=== PATIENT | female | born 1965 | race African-American/Black ===

== ENCOUNTER 2023-02-15 13:27 | Outpatient (CLI) | payer OTHER | END 2023-02-15 13:28 | disposition home or self-care (01) | LOC: CSHMAMMO 13:27 | PROVIDERS: ATTEND Family Medicine | DX: Z12.31 Encounter for screening mammogram for malignant neoplasm of breast (principal) | CPT/HCPCS: 77063; 77067 ==

== ENCOUNTER 2023-09-28 13:53 | Outpatient (CLI) | payer OTHER | END 2023-09-28 13:54 | disposition home or self-care (01) | LOC: CSHRAD 13:53 | PROVIDERS: ATTEND Family Medicine | DX: M54.2 Cervicalgia (principal); V87.7XXD Person injured in collision between other specified motor vehicles (traffic), subsequent encounter | CPT/HCPCS: 72052 ==